=== PATIENT | female | born 1990 ===

== ENCOUNTER 2016-10-15 20:06 | Emergency (ER) | payer SELFPAY ==
[2016-10-15 20:06] VITALS: BMI 29.0
[2016-10-15 20:20] VITALS: BP 110/60; PULSE 99; RESP 20; TEMP 100; O2SAT 99
--- NOTE | 2016-10-15 21:22 | ED PDOC ---
HPI: General Adult Time Seen by Provider: 10/15/16 20:46 Chief Complaint (Nursing): Flu-like Symptoms Chief Complaint (Provider): Cough History Per: Patient Additional Complaint(s): Pt. states for the past 2 weeks she's had a non-productive cough associated with nasal congestion and fever. Pt. states she is currently but will stop if she is prescribed medications. Denies SOB, chest pain, hemoptysis, sick contacts, recent travel. Past Medical History Reviewed: Historical Data, Nursing Documentation, Vital Signs Vital Signs: Last Vital Signs Temp 100.0 F H 10/15/16 20:17 Pulse 99 H 10/15/16 20:17 Resp 20 10/15/16 20:17 BP 110/60 10/15/16 20:17 Pulse Ox 99 10/15/16 21:23 - Family History Family History: States: No Known Family Hx - Home Medications Home Medications: Ambulatory Orders Medication Instructions Recorded Ibuprofen [Motrin Tab] 600 mg PO Q6H PRN #30 tab 07/21/16 Albuterol HFA [Ventolin HFA 90 2 puff IH [id number] PRN #60 puff 10/15/16 mcg/actuation (8 g)] Azithromycin [Zithromax] 250 mg PO DAILY #6 tab 10/15/16 Promethazine DM [Phenergan DM 5 - 10 ml PO Q8 PRN #120 ml 10/15/16 Syrup] - Allergies Allergies/Adverse Reactions: Allergies Allergy/AdvReac Type Severity Reaction Status Date / Time Penicillins Allergy RASH Verified 11/03/15 16:20 Review of Systems ROS Statement: Except As Marked, All Systems Reviewed And Found Negative ENT: Positive for: Nose Congestion Respiratory: Positive for: Cough Physical Exam - Reviewed Nursing Documentation Reviewed: Yes Vital Signs Reviewed: Yes - Physical Exam Appears: Positive for: Well, Non-toxic, No Acute Distress Head Exam: Positive for: ATRAUMATIC, NORMAL INSPECTION, NORMOCEPHALIC Skin: Positive for: Normal Color, Warm. Negative for: Rash Eye Exam: Positive for: EOMI, Normal appearance, PERRL ENT: Positive for: Normal ENT Inspection. Negative for: Pharyngeal Erythema, Tonsillar Exudate, Tonsillar Swelling Neck: Positive for: Normal, Painless ROM Cardiovascular/Chest: Positive for: Regular Rate, Rhythm Respiratory: Positive for: Normal Breath Sounds. Negative for: Decreased Breath Sounds, Accessory Muscle Use, Crackles, Rales, Rhonchi, Wheezing Gastrointestinal/Abdominal: Positive for: Normal Exam, Soft. Negative for: Tenderness Back: Positive for: Normal Inspection Extremity: Positive for: Normal ROM Neurologic/Psych: Positive for: Alert, Oriented - ECG O2 Sat by Pulse Oximetry: 99 - Radiology X-Ray: Interpreted by Me (CXR) X-Ray Interpretation: No Acute Disease - Progress ED Course And Treament: Pt. instructed to not breastfeed while on medications and to f/u with PMD or her baby's wire drawer prior to again. Disposition - Clinical Impression Clinical Impression: Acute bronchitis - Patient ED Disposition Is Patient to be Admitted: No - Disposition Referrals: [facility] [Outside] Disposition: Routine/Home Disposition Time: 22:28 Condition: STABLE Additional Instructions: Do not breastfeed while taking medication. Follow up with your child's wire drawer or your PMD prior to again. Prescriptions: Albuterol HFA [Ventolin HFA 90 mcg/actuation (8 g)] 2 puff IH [id number] PRN #60 puff PRN Reason: Cough Promethazine DM [Phenergan DM Syrup] 5 - 10 ml PO Q8 PRN #120 ml PRN Reason: Cough Azithromycin [Zithromax] 250 mg PO DAILY #6 tab Instructions: Acute Bronchitis (ED)
--- NOTE | 2016-10-16 10:40 | RAD ---
HISTORY: cough COMPARISON: Chest x-ray performed 05/14/16 TECHNIQUE: Chest PA and lateral FINDINGS: Emanation limited by habitus. LUNGS: No focal consolidation. Please note that chest x-ray has limited sensitivity for the detection of pulmonary masses. PLEURA: No significant pleural effusion identified. No definite pneumothorax . CARDIOVASCULAR: The cardiomediastinal silhouette appears within normal limits of size. OSSEOUS STRUCTURES: No acute osseous abnormality identified. VISUALIZED UPPER ABDOMEN: Unremarkable. OTHER FINDINGS: None. IMPRESSION: No focal consolidation, significant pleural effusion, or definite pneumothorax identified.
== END 2016-10-15 23:08 | disposition home or self-care (01) ==
LOC: H.ER 20:06
DX: J20.9 Acute bronchitis, unspecified (principal); R05 Cough

== ENCOUNTER 2017-09-10 12:40 | Emergency (ER) | payer SELFPAY, MEDICAID ==
[2017-09-10 17:34] VITALS: BMI 30.9
[2017-09-10 17:57] LABS: HEMOGLOBIN 12.4 g/dL (12.0-16.0); MEAN CELL VOLUME 85.4 fl (81.0-99.0); MEAN CORPUSCULAR HEMOGLOBIN 28.7 pg (27.0-31.0); MEAN CORPUSCULAR HGB CONC 33.6 g/dL (33.0-37.0); RBC 4.32 Mil/uL (3.80-5.20); RED CELL DISTRIBUTION WIDTH 15.1 % (11.5-14.5)
[2017-09-11 03:22] VITALS: BP 109/71; PULSE 101; RESP 18; TEMP 98.6; O2SAT 100
== END 2017-09-10 22:35 | disposition home or self-care (01) ==
LOC: H.EROB2 12:40 → H.EROB 13:03 → H.EROB2 22:35
DX: O36.8131 Decreased fetal movements, third trimester, fetus 1 (principal); O26.93 Pregnancy related conditions, unspecified, third trimester; R10.2 Pelvic and perineal pain; O47.1 False labor at or after 37 completed weeks of gestation; Z3A.39 39 weeks gestation of pregnancy

== ENCOUNTER 2017-09-17 02:57 | Inpatient (IN) | payer MEDICAID, SELFPAY ==
[2017-09-17] MEDS ORDERED: Oxytocin 30 UNITS in Sodium Chloride 0.9% 500 ML IV PRN (04:40)
[2017-09-17] MEDS: Lactated Ringer's 1,000 ML IV SCH ×4 (05:17→13:00)
[2017-09-17 05:32] LABS: BASO # 0.1 K/uL (0.0-0.2); BASO % 0.7 % (0.0-2.0); EOS # 0.1 K/uL (0.0-0.7); EOS % 0.9 % (0.0-4.0); HEMOGLOBIN 11.8 g/dL (12.0-16.0); LYMPH # 1.7 K/uL (1.0-4.3); MEAN CELL VOLUME 85.6 fl (81.0-99.0); MEAN CORPUSCULAR HEMOGLOBIN 28.2 pg (27.0-31.0); MEAN PLATELET VOLUME 8.2 fl (7.2-11.7); MONO # 0.6 K/uL (0.0-0.8); MONO % 6.3 % (0.0-10.0); NEUT # 7.7 K/uL (1.8-7.0); NEUT % 75.1 % (50.0-75.0); NRBC % 0.2 % (0.0-0.0); RBC 4.18 Mil/uL (3.80-5.20); RED CELL DISTRIBUTION WIDTH 15.2 % (11.5-14.5); WHITE BLOOD COUNT 10.3 K/uL (4.8-10.8)
[2017-09-17] MEDS ORDERED: Lactated Ringer's 1,000 ML IV SCH (09:15)
[2017-09-17] MEDS ORDERED: Oxytocin 30 UNITS in Sodium Chloride 0.9% 500 ML IV SCH (09:15)
[2017-09-17] MEDS ORDERED: Bupivacaine HCl 0.25% PF (10 ml) Inj ONE (09:23)
[2017-09-17] MEDS ORDERED: Fentanyl/Bupivacaine HCl 250 ML EPI ONE (09:26)
--- NOTE | 2017-09-17 09:54 | OBPN ---
Datetime: 09/17/2017 09:00 IP Progress Impression: Normal progression of labor; Reassuring heart rate IP Informed Consent Obtain: Vaginal Delivery; Risks, Benefits and Alternatives Discussed IP Progress Plan: Continue present management; Augmentation; Anesthesia consult Pool Provider: Negative FHR - Baseline A Provider: 135 Presentation-Admit: Vertex IP Progress Note Comment: [facility]. Sign out rec'd. She was checked this morning and n oted to be 5cm (Dr TAYLOR). She feels occ CTX pain and wants epidural A: Early labor; GBS+ (vancomcin ordered) PLAN: Epidural requested; discussed augmentation with AROM/Pitocin. She agrees NICHD Accel Fetus A IP Provider: [id number] FHR Category Provider Fetus A: Category I NICHD Variability Prov Fetus A: Moderate 6-25bpm NICHD Decel Fetus A IP Provider: None Datetime: 09/17/2017 05:02 Nitrazine Provider: Negative Contraction Comments Provider: Irregular Irregular Vital Signs Provider: Reviewed; Within Normal Limits Dilatation, Provider: 5
--- NOTE | 2017-09-17 12:39 | OBPN ---
Datetime: 09/17/2017 11:45 IP Progress Impression: Reassuring heart rate IP Informed Consent Obtain: Vaginal Delivery; Risks, Benefits and Alternatives Discussed IP Progress Plan: Continue present management; Augmentation Pool Provider: Negative Membranes, Provider: Intact FHR - Baseline A Provider: 130 Presentation-Admit: Vertex IP Progress Note Comment: She was given epidural and 1st dose of Vacomycin at 11am. She feels fine. A: Active phase of labor PLAN: spoke to Dr Villafuerte (PEDS)...with 1st dose of Ab at 11am, no AROM for at least 4h after Ab. Observe labor progress NICHD Accel Fetus A IP Provider: [id number] FHR Category Provider Fetus A: Category I NICHD Variability Prov Fetus A: Moderate 6-25bpm Dilatation, Provider: 6 Effacement, Provider: 90 Station, Provider: -2 NICHD Decel Fetus A IP Provider: None
[2017-09-17] MEDS ORDERED: Lidocaine 1% Inj (20ml) ONE (15:39)
[2017-09-17] MEDS ORDERED: Benzocaine/Menthol SPRAY TOP PRN (16:07)
[2017-09-17] MEDS ORDERED: Oxycodone/Acetaminophen 5/325 mg Tab PO PRN (16:07)
--- NOTE | 2017-09-17 20:49 | OBDS ---
DELIVERY PERSONNEL Delivery Doctor: Venancio Lee DO Cutter Hand: Cat Sequeira RN MATERNAL INFORMATION Delivery Anesthesia: Epidural Medications in Delivery: pitocin Estimated Blood Loss (ml): 200 Placenta Cultured: No Maternal Complications: None RN Comments: Atraumatic viable babyboy with lusty cry skin to skin initiated immediately. Jesica ent tolerated delivey well. Able to start BF. and patient recoverying well. Provider Comments: Over intact perineum, of live male . GBS+ and Vancomycin one dose giv en 11am. Peds notified. 9,9. Skin to skin was done with mother. Placenta was delivered intac t spontaneously. EBL 200cc. She remained stable. LABOR SUMMARY EDC: 09/17/2017 00:00 No. Babies in Womb: 1 Attempted: No Labor Anesthesia: Epidural LABOR INFORMATION Reason for Induction: Not Applicable Onset of Labor: 09/17/2017 07:00 Complete Dilatation: 09/17/2017 13:20 Oxytocin: Augmentation Group B Beta Strep: Positive (Annotations: Urine ) Antibiotics # of Doses: 1 Antibiotics Time of Last Dose: 10:15 Steroids Given: None Reason Steroids Not Administered: Not Applicable Other Reason Not Administered: Not required MEMBRANES Membranes Rupture Method: Spontaneous Rupture of Membranes: 09/17/2017 15:41 Length of Rupture (hrs): 0.00 Amniotic Fluid Color: Clear Amniotic Fluid Amount: Small Amniotic Fluid Odor: Normal STAGES OF LABOR Stage 1 hrs: 6 Stage 1 min: 20 Stage 2 hrs: 2 Stage 2 min: 21 Stage 3 hrs: 0 Stage 3 min: 6 Total Time in Labor hrs: 8 Total Time in Labor min: 47 VAGINAL DELIVERY Episiotomy: None Laceration Extension: First Degree Laceration Type: Perineal Laceration Repair: Yes Laceration Repair Note: First degree perineal laceratoin reparied with 2.0 Vicryl Rapide (interupted ).1% Lidocaine was infiltrated (3-4cc) Initial Vag Sponge Count: 5 Final Vag Sponge Count: 5 Initial Vag Sharps Count: 1 Final Vag Sharps Count: 1 Sponge Count Correct: Yes Sharps Count Correct: Yes Count Comment: 5 lap pads one syringe one suture BABY A INFORMATION Delivery Date/Time: 09/17/2017 15:41 Method of Delivery: Vaginal Born in Route : No : N/A Forceps: N/A Vacuum Extraction: N/A Shoulder Dystocia : No SHOULDER DYSTOCIA BABY A Delivery Date/Time: 09/17/2017 15:41 PRESENTATION/POSITION BABY A Presentation: Cephalic Cephalic Presentation: Vertex Vertex Position: Left Occipital Posterior Breech Presentation: N/A PLACENTA INFORMATION BABY A Placenta Delivery Time : 09/17/2017 15:47 Placenta Method of Delivery: Spontaneous Placenta Status: Delivered SCORES BABY A Heart Rate 1 min: >100 bpm Resp Effort 1 min: Good Cry Reflex Irritability 1 min: Cough or Sneeze or Pulls Away Muscle Tone 1 min: Active Motion Color 1 min: Body [place], Extremities Blue Resuscitation Effort 1 min: N/A SCORE 1 MIN: 9 Heart Rate 5 min: >100 bpm Resp Effort 5 min: Good Cry Reflex Irritability 5 min: Cough or Sneeze or Pulls Away Muscle Tone 5 min: Active Motion Color 5 min: Body [place], Extremities Blue Resuscitation Effort 5 min: N/A SCORE 5 MIN: 9 INFORMATION BABY A Gestational Age at Delivery: 40.0 Gestational Status: Term Outcome : Liveborn Condition : Stable Sex: Male IDENTIFICATION/MEDS BABY A ID Band Number: [id number] ID Band Location: Right Leg; Right Arm WEIGHT/LENGTH BABY A Birthweight (gms): 4390 Infant Weight (lb): 9 Weight (oz): 11 Infant Length Inches: 55.00 Length cms: 139.7 CORD INFORMATION BABY A No. Cord Vessels: 3 Nuchal Cord : N/A Cord Blood Taken: No Infant Suction: Mouth ASSESSMENT BABY A Infant Complications: None Physical Findings at Delivery: Within Normal Limits Respirations: Appears Normal Meteorological Engineer/ALS Called : No Care By: Dr Villafuerte Transferred To: [facility]
[2017-09-18] MEDS ORDERED: Oxycodone/Acetaminophen 5/325 mg Tab PO PRN (01:13)
[2017-09-18] MEDS ORDERED: Benzocaine/Menthol SPRAY TOP PRN (01:13)
[2017-09-18 06:44] LABS: BASO # 0.1 K/uL (0.0-0.2); BASO % 0.6 % (0.0-2.0); EOS # 0.1 K/uL (0.0-0.7); HEMOGLOBIN 11.5 g/dL (12.0-16.0); LYMPH # 1.8 K/uL (1.0-4.3); LYMPH % 13.8 % (20.0-40.0); MEAN CELL VOLUME 85.4 fl (81.0-99.0); MEAN CORPUSCULAR HEMOGLOBIN 28.7 pg (27.0-31.0); MEAN CORPUSCULAR HGB CONC 33.6 g/dL (33.0-37.0); MEAN PLATELET VOLUME 8.3 fl (7.2-11.7); MONO # 0.9 K/uL (0.0-0.8); MONO % 6.8 % (0.0-10.0); NEUT # 9.9 K/uL (1.8-7.0); NEUT % 77.8 % (50.0-75.0); NRBC % 0.2 % (0.0-0.0); RBC 4.02 Mil/uL (3.80-5.20); WHITE BLOOD COUNT 12.7 K/uL (4.8-10.8)
--- NOTE | 2017-09-18 08:51 | OBPPN ---
Datetime: 09/18/2017 06:13 PP Pain Prov: Within normal limits PP Nausea Prov: Denies PP Flatus Prov: Yes PP BM Prov: No PP Breasts Prov: Not Done PP Heart Prov: Normal PP Lungs Prov: Normal PP Abdomen/Uterus Prov: Normal PP Lochia Prov: Normal PP Vulva/Perineum Prov: Not Done PP CVA Tenderness Prov: Not Done PP Extremities Prov: Normal PP C/S Incision Prov: Not Applicable PP Progress Prov: Normal PP Impression Prov: Normal progression PP Plan Prov: Continue present management; Discharge PP Progress Note Prov: PPD 1 S: 27 y/o female s/p on 09/17/17 seen and examined at bedside this am on PPD1. No ov ernight events. Pt reports mild abdominal pain, but well controlled with pain meds. Ambulating. Breas t feeding (with formula supplementation) without difficulty. Lochia is similar to menses volume. No B M. Denies fever/chills, diarrhea, nausea/vomiting, chest pain, dyspnea, and dizziness. Declined circu mcision for baby boy. Tolerating regular diet. O: VS: stable, low grade fever (will continue to monitor) GEN: NAD Cardio: S1S2, no murmurs Lungs: clear breath sounds b/l, no wheezing Abdomen: BS+, appropriate tenderness to palpation. Uterus is firm and at the level of the umbilic us. EXT: No edema, calves nontender NEURO/PSYCH: AAOx3, no grossly focal deficits, preserved affect and mood. Assessment/Plan: 27 y/o female s/p on 09/17/17, doing well on PPD1. Pt remains afebr ile, tolerating pain with medication. F/U Post H/H. Tolerating diet. Anticipating d/c on 09/19. Continue with current management. Motrin 600mg q6 for mild pain. Percocet 1 tablet PO q4 for mod- severe pain Encourage and ambulating Colace 100mg PO BID Case d/w OB attending. Adiam Latrell, PGY1 The patient was seen with the resident I agree with the note IP PP Procedures: None Vital Signs Provider PP: Reviewed Vital Signs Provider Details PP: low grade fever in am
[2017-09-18] MEDS: Multivitamin With Minerals Tab PO SCH (08:56)
[2017-09-18] MEDS ORDERED: Multivitamin With Minerals Tab PO SCH (09:00)
[2017-09-19] MEDS: Multivitamin With Minerals Tab PO SCH (09:57)
[2017-09-19 20:07] VITALS: BP 102/53; PULSE 86; RESP 20; TEMP 98.1; O2SAT 98
== END 2017-09-19 14:10 | disposition home or self-care (01) | DRG 373 ==
LOC: H.EROB2 02:57 → H.L&D 04:40 → H.OB/GYN 19:16
PROVIDERS: ADMIT Obstetrics & Gynecology; ATTEND Obstetrics & Gynecology
PROC: 10E0XZZ Delivery of Products of Conception, External Approach (ICD-10-PCS; principal; 2017-09-17)
PROC: 0HQ9XZZ Repair Perineum Skin, External Approach (ICD-10-PCS; 2017-09-17)
PROC: 4A1HXCZ Monitoring of Products of Conception, Cardiac Rate, External Approach (ICD-10-PCS; 2017-09-17)
DX: O48.0 Post-term pregnancy (principal); O70.0 First degree perineal laceration during delivery; Z3A.40 40 weeks gestation of pregnancy; O99.824 Streptococcus B carrier state complicating childbirth; Z37.0 Single live birth; Z88.0 Allergy status to penicillin